=== PATIENT | male | born 1970 | race Caucasian/White ===

== ENCOUNTER → 2018-09-05 06:42 | Outpatient (CLI) | payer BC, SELFPAY ==
[2018-08-21 13:06] VITALS: BMI 34.0
--- NOTE | 2018-09-05 06:46 | ECHOD_ITS ---
Reason For Study: DYSPNEA/SOB Procedure This was a 2D Doppler, Color Flow transthoracic echocardiogram. The study was technically difficult. Exam performed in department. Left Ventricle Normal LV size. Left ventricular systolic function is normal. The estimated ejection fraction is 65 %. Transmitral doppler flow suggestive of impaired relaxation of left ventricle. No regional wall motion abnormalities noted. Right Ventricle Normal RV size. Normal systolic function. Atria Normal left atrium. Normal right atrium. No doppler evidence for ASD. Mitral Valve There is no mitral annular calcification. Mild diffuse mitral valve thickening. Trivial mitral valve insufficiency. Tricuspid Valve Normal tricuspid valve. Trivial tricuspid valve insufficiency. Unable to estimate RV systolic pressure/pulmonary artery pressure due to technically difficult study. Aortic Valve Trisinus/trileaflet aortic valve. Normal aortic valve. Pulmonic Valve The pulmonic valve is not well visualized. Great Vessels Normal sized aortic root. MMode/2D Measurements & Calculations LVIDd: 4.6 cm IVSd: 0.96 cm Ao root diam: 3.4 cm LVIDs: 3.2 cm LVPWd: 1.1 cm RVDd: 3.2 cm FS: 30.7 % LAV(MOD-bp): 34.2 ml LA A4 area: 12.1 cm2 LA dimension(2D): 3.8 cm LAV(MOD-bp) Indexed: 15.6 ml/m2 LAV(MOD-sp2): 39.2 ml LAV(MOD-sp4): 29.7 ml Time Measurements MV dec time: 0.18 sec Doppler Measurements & Calculations MV E max gilberto: 57.6 cm/sec Lat Peak E' Gilberto: 8.6 cm/sec Med Peak E' Gilberto: 7.0 cm/sec MV A max gilberto: 82.3 cm/sec E/E' lat: 6.7 E/E' med: 8.3 MV E/A: 0.70 Ao V2 max: 96.3 cm/sec LV V1 max: 83.0 cm/sec PA V2 max: 94.7 cm/sec Ao max P.7 mmHg LV V1 max P.8 mmHg Interpretation Summary The study was technically difficult. Left ventricular systolic function is normal. The estimated ejection fraction is 65 %. Mild diffuse mitral valve thickening. Trivial mitral valve insufficiency. Trivial tricuspid valve insufficiency. Unable to estimate RV systolic pressure/pulmonary artery pressure due to technically difficult study. Transmitral doppler flow suggestive of impaired relaxation of left ventricle Ordering Physician: Lino Haddad Referring Physician: Vitor Tompkins Performed By: Lorelei Johnson RDCS, RVT
--- NOTE | 2018-09-05 07:00 | RAD_ITS ---
STUDY: X-RAY CHEST REASON FOR EXAM: Male, 48 years old. Shortness of breath TECHNIQUE: Frontal and lateral views of the chest COMPARISON: 09/05/2016 FINDINGS: The lungs are clear. There are no pleural effusions. There is no pneumothorax. The heart is normal in size. The visualized osseous structures are within normal limits. RAD/Chest PA and Lateral IMPRESSION: No acute thoracic pathology. Electronically Signed: Kt Gonzales, at 10:08 EST Tel , Service support ,
--- NOTE | 2018-09-05 14:48 | STRESSREP_ITS ---
Stress Test Report Date: 09/05/2018 Procedure: Exercise tolerance test/imaging study Indications: Chest pain Consent: Per the patient Procedure: The patient exercised on a Jim protocol for 9 minutes completing Stage III achieving a peak heart rate of 166 bpm (95 % predicted maximal heart rate) with a peak blood pressure 164/88 mmHg and a peak MET capacity of 10 METs. The baseline ECG demonstrated normal sinus rhythm. The peak exercise ECG demonstrated no obvious ECG changes. There were no cardiac dysrhythmias pretest, during exercise, or recovery. The functional capacity was considered good. There was no complaint of chest discomfort during exercise or recovery. The examination was discontinued secondary to leg discomfort. Impression: 1. Technically adequate (percent predicted maximal heart rate greater than 85%) exercise tolerance test 2. Peak exercise ECG with no obvious ECG changes 3. There were no cardiac dysrhythmias pretest, during exercise, or recovery 4. Nuclear images pending Myocardial perfusion imaging study: Technique: The patient was injected with 14.3 mCi of technetium 99m Cardiolite and subsequently rest SPECT Cardiolite nuclear imaging was obtained in the horizontal long, vertical long, and short axis views. The patient exercised on a Jim protocol for 9 minutes completing Stage III achieving a peak heart rate of 166 bpm (95 % predicted maximal heart rate) with a peak blood pressure 164/88 mmHg and a peak MET capacity of 10 METs. The patient was injected with 44.2 mCi of technetium 99m Cardiolite and subsequently stress SPECT Cardiolite nuclear imaging was obtained in the horizontal long, vertical long, and short axis views. A gated Cardiolite study at peak stress was obtained. Interpretation: Rest and stress SPECT Cardiolite nuclear imaging status post realignment, normalization, and attenuation correction, demonstrates the appearance of relative uniform tracer uptake and myocardial perfusion appearing within normal limits. There is end systolic thickening and brightening. The gated Cardiolite study demonstrates myocardial thickening and inward wall motion. The reported LVEF is 63 %. Impression: 1. Rest and stress SPECT Cardiolite nuclear imaging demonstrate relative uniform tracer uptake and myocardial perfusion appearing within normal limits. 2. The gated Cardiolite study reports an LVEF of 63 %. This note was generated with [employer] software. It may contain incorrect words, spelling, and punctuation that were not noted in checking the note before signing.
--- OUTSIDE RECORDS SUMMARY | 2018-10-31 01:03 | XMS RPT_ITS ---
:1970 Author Organization OHIP Care Team Providers Name Role Phone Deyanira Lisseth Attending Unavailable MoodispaLino gonsalez Attending Unavailable MoodispawLino Attending Unavailable MoodLino colón Referring Unavailable Vitor Tompkins Primary Care Unavailable Lino Haddad Attending Unavailable MoodLino colón Referring Unavailable Vitor Tompkins Primary Care Unavailable Lino Haddad Consulting Unavailable PROBLEMS PROBLEMS DATE TYPE CONDITION / CODE ATTENDING STATUS SOURCE 09/05/2018 Unknown R06.02 - Shortness Lino Haddad Active [place] of breath / Community R06.02(ICD-10) Hospital Repository 09/05/2018 Unknown R07.9 - Chest pain, Lino Haddad Active [place] unspecified / Community R07.9(ICD-10) Hospital Repository 09/05/2018 Unknown E78.5 - MoodisLino ivan Active [place] Hyperlipidemia, Community unspecified / Hospital E78.5(ICD-10) Repository 09/05/2018 Unknown E11.9 - Type 2 MoodisLino ivan Active [place] diabetes mellitus Community without Hospital complications / Repository E11.9(ICD-10) 08/21/2018 Unknown I10 - Essential Moodispaw, Lino Active [place] (primary) Replaced By [facility] hypertension / Hospital I10(ICD-10) Repository PROCEDURES PROCEDURES No Procedure Records FoundRESULTS RESULTS ECHOCARDIOGRAM COMPLETE Observed: 09/05/2018 Status: F Source: [place] 6:13 PM [facility] REPOSITORY [facility] Cardiovascular Services [address] [place] [address] Echo Complete 09/05/18 0959 MR#: [id number] Acct: [id number] Name: SHANTANU REINOSO III Rep #: [id number] : 1970 48 From: Lino Haddad MD Attending Dr: Lino Haddad MD Status: REG CLI Ordering Dr: Lino Haddad MD Date: 09/05/18 Location: [facility] Sex: M C Admitted: Reason For Study: DYSPNEA/SOB Procedure This was a 2D Doppler, Color Flow transthoracic echocardiogram. The study was technically difficult. Exam performed in department. Left Ventricle Normal LV size. Left ventricular systolic function is normal. The estimated ejection fraction is 65 %. Transmitral doppler flow suggestive of impaired relaxation of left ventricle. No regional wall motion abnormalities noted. Right Ventricle Normal RV size. Normal systolic function. Atria Normal left atrium. Normal right atrium. No doppler evidence for ASD. Mitral Valve There is no mitral annular calcification. Mild diffuse mitral valve thickening. Trivial mitral valve insufficiency. Tricuspid Valve Normal tricuspid valve. Trivial tricuspid valve insufficiency. Unable to estimate RV systolic pressure/pulmonary artery pressure due to technically difficult study. Aortic Valve Trisinus/trileaflet aortic valve. Normal aortic valve. Pulmonic Valve The pulmonic valve is not well visualized. Great Vessels Normal sized aortic root. MMode/2D Measurements AND Calculations LVIDd: 4.6 cm IVSd: 0.96 cm Ao root diam: 3.4 cm LVIDs: 3.2 cm LVPWd: 1.1 cm RVDd: 3.2 cm FS: 30.7 % LAV(MOD-bp): 34.2 ml LA A4 area: 12.1 cm2 LA dimension(2D): 3.8 cm LAV(MOD-bp) Indexed: 15.6 ml/m2 LAV(MOD-sp2): 39.2 ml LAV(MOD-sp4): 29.7 ml Time Measurements MV dec time: 0.18 sec Doppler Measurements AND Calculations MV E max gilberto: 57.6 cm/sec Lat Peak E' Gilberto: 8.6 cm/sec Med Peak E' Gilberto: 7.0 cm/sec MV A max gilberto: 82.3 cm/sec E/E' lat: 6.7 E/E' med: 8.3 MV E/A: 0.70 Ao V2 max: 96.3 cm/sec LV V1 max: 83.0 cm/sec PA V2 max: 94.7 cm/sec Ao max P.7 mmHg LV V1 max P.8 mmHg Interpretation Summary The study was technically difficult. Left ventricular systolic function is normal. The estimated ejection fraction is 65 %. Mild diffuse mitral valve thickening. Trivial mitral valve insufficiency. Trivial tricuspid valve insufficiency. Unable to estimate RV systolic pressure/pulmonary artery pressure due to technically difficult study. Transmitral doppler flow suggestive of impaired relaxation of left ventricle Ordering Physician: Lino Haddad Referring Physician: Vitor Tompkins Performed By: Lorelei Johnson, TEMI, RVT 09/05/181811 Date Lino Haddad MD CC: Vitor Tompkins DO; Lino Haddad MD Date Dictated: 09/05/18 0959 Date Transcribed: 09/05/181811 Lead Sales Consultant: Signed STRESS REPORT Observed: 09/05/2018 Status: F Source: [place] 2:48 PM [facility] REPOSITORY [facility] Cardiovascular Services [address] [place] [address] MR#: [id number] Acct: [id number] Name: SHANTANU REINOSO III Rep #: [id number] : 1970 48 From: Lino Haddad MD Primary Care: Vitor Tompkins DO Status: REG CLI Ordering Dr: Sex: Jaden C Stress Test Report Date: 09/05/2018 Procedure: Exercise tolerance test/imaging study Indications: Chest pain Consent: Per the patient Procedure: The patient exercised on a Jim protocol for 9 minutes completing Stage III achieving a peak heart rate of 166 bpm (95 % predicted maximal heart rate) with a peak blood pressure 164/88 mmHg and a peak MET capacity of 10 METs. The baseline ECG demonstrated normal sinus rhythm. The peak exercise ECG demonstrated no obvious ECG changes. There were no cardiac dysrhythmias pretest, during exercise, or recovery. The functional capacity was considered good. There was no complaint of chest discomfort during exercise or recovery. The examination was discontinued secondary to leg discomfort. Impression: 1. Technically adequate (percent predicted maximal heart rate greater than 85%) exercise tolerance test 2. Peak exercise ECG with no obvious ECG changes 3. There were no cardiac dysrhythmias pretest, during exercise, or recovery 4. Nuclear images pending Myocardial perfusion imaging study: Technique: The patient was injected with 14.3 mCi of technetium 99m Cardiolite and subsequently rest SPECT Cardiolite nuclear imaging was obtained in the horizontal long, vertical long, and short axis views. The patient exercised on a Jim protocol for 9 minutes completing Stage III achieving a peak heart rate of 166 bpm (95 % predicted maximal heart rate) with a peak blood pressure 164/88 mmHg and a peak MET capacity of 10 METs. The patient was injected with 44.2 mCi of technetium 99m Cardiolite and subsequently stress SPECT Cardiolite nuclear imaging was obtained in the horizontal long, vertical long, and short axis views. A gated Cardiolite study at peak stress was obtained. Interpretation: Rest and stress SPECT Cardiolite nuclear imaging status post realignment, normalization, and attenuation correction, demonstrates the appearance of relative uniform tracer uptake and myocardial perfusion appearing within normal limits. There is end systolic thickening and brightening. The gated Cardiolite study demonstrates myocardial thickening and inward wall motion. The reported LVEF is 63 %. Impression: 1. Rest and stress SPECT Cardiolite nuclear imaging demonstrate relative uniform tracer uptake and myocardial perfusion appearing within normal limits. 2. The gated Cardiolite study reports an LVEF of 63 %. This note was generated with YouView software. It may contain incorrect words, spelling, and punctuation that were not noted in checking the note before signing. 09/05/18 1448 <Electronically signed by Lino Haddad MD> Date Lino Haddad MD CC: Vitor Tompkins DO; Lino Haddad MD Date Dictated: 09/05/181443 Date Transcribed: 09/05/181443 Lead Sales Consultant: PM Signed CHEST PA AND LATERAL Observed: 09/05/2018 Status: F Source: [place] 6:46 AM [facility] REPOSITORY [facility] Imaging Services [address] [place] [address] Chest PA and Lateral MR#: [id number] Acct: [id number] Name: SHANTANU REINOSO III Rep #: [id number] : 1970 M 48 From: Kt Gonzales MD PCP: Vitor Tompkins DO Status: REG CLI Study: Chest PA and Lateral Date of Exam: 09/05/18 Exam# [id number] Ordering Dr: Lino Haddad MD STUDY: X-RAY CHEST REASON FOR EXAM: Male, 48 years old. Shortness of breath TECHNIQUE: Frontal and lateral views of the chest COMPARISON: 09/05/2016 FINDINGS: The lungs are clear. There are no pleural effusions. There is no pneumothorax. The heart is normal in size. The visualized osseous structures are within normal limits. RAD/Chest PA and Lateral IMPRESSION: No acute thoracic pathology. Electronically Signed: Kt Gonzales, at 10:08 EST Tel , Service support , CC: Vitor Tompkins DO; Lino Haddad MD Lead Sales Consultant: Signed CARDIOLOGY VISIT Observed: 08/21/2018 Status: F Source: [place] REPORT 6:06 PM [facility] REPOSITORY [facility] [address] [place] [address] OFFICE VISIT Date of Service: 08/21/18 MR#: [id number] Acct: [id number] Name: SHANTANU REINOSO III Rep #: [id number] : 1970 Provider: Lino Haddad MD Age/Sex: 48/M [place] [facility] [place]: Signed HPI HPI Details: SHANTANU REINOSO, is a 48 M who presents to the office today for outpatient cardiovascular consultation based on concerns of chest discomfort and shortness of breath/dyspnea. He states that he is concern based upon his cardiovascular risk factors including his family history of premature coronary artery disease in multiple family members require revascularization therapy and/or leading to . He states he gets a somewhat chest dull discomfort that radiates through his central chest and left chest. This occurs sporadically and may last for a very brief period of time. He notes afterwards he feels somewhat tender to the touch in the chest. It is not necessarily associated with his concerns of shortness of breath or dyspnea nor is it necessarily associated with any other symptoms such as nausea, emesis, or diaphoresis. He also has episodes more concerning to him or becomes short of breath and dyspneic with exertional activity especially going up an incline. He has not had orthopnea or PND. There is been no history of palpitations, near-syncope or syncope. There is been no lower extremity peripheral pitting edema. He had an ECG in the office today. He was noted to be in sinus rhythm. He had poor R wave progression. Intake Vital Signs08/21/18 Height 5 ft 9 in 08/21/18 Weight: 230 lb 08/21/18 Body Mass Index (BMI) 34.0 08/21/18 Blood Pressure 118/72 Intake Visit Reasons: sob/family hx Allergies No Known Allergies Allergy (Verified 08/21/18 13:06) Medications Aspirin [Aspirin, Baby] 81 mg PO DAILY@0800 01/22/14 [History Confirmed 08/21/18] hfugporegzk-wrmmeuqrc-O-Mn-boron 750 mg-600 mg-30 mg-1mg-1.5mg tablet 1 tab PO DAILY tab 07/08/18 [History Confirmed 08/21/18] glyburide 5 mg tablet 10 mg PO BID tab 07/08/18 [History Confirmed 08/21/18] lisinopril 10 mg tablet 10 mg PO DAILY 07/08/18 [History Confirmed 08/21/18] metformin 1,000 mg tablet 1,000 mg PO BID 07/08/18 [History Confirmed 08/21/18] multivitamin tablet 1 tab PO DAILY 07/08/18 [History Confirmed 08/21/18] omega-3 fatty acids 1,000 mg capsule 1,000 mg PO DAILY 07/08/18 [History Confirmed 08/21/18] pravastatin 20 mg tablet 20 mg PO DAILY 07/08/18 [History Confirmed 08/21/18] tadalafil 20 mg tablet 20 mg PO Q3D PRN tab 07/08/18 [History Confirmed 08/21/18] coenzyme Q10 200 mg capsule 200 mg PO DAILY 08/21/18 [History Confirmed 08/21/18] omeprazole 40 mg capsule,delayed release 40 mg PO DAILY 08/21/18 [History Confirmed 08/21/18] [facility] Medical History Hyperlipemia (Chronic) SOB (shortness of breath) (Acute) WES (obstructive sleep apnea) (Chronic) Type 2 diabetes mellitus (Chronic) IBS (irritable bowel syndrome) (Acute) Osteoarthritis (Chronic) Essential hypertension (Inactive) Surgical History History of appendectomy (Resolved) History of back surgery (Resolved) History of cholecystectomy (Resolved) History of knee surgery (Resolved) History of shoulder surgery (Resolved) Family History Father Heart disease CVA (cerebral vascular accident) Hypertension Grandfather Myocardial infarction, Onset Age: 43 Uncle Myocardial infarction, Onset Age: 39 Grandmother CAD (coronary artery disease) History of coronary artery bypass surgery Social History Smoking Status: Never smoker alcohol intake: never substance use type: does not use ROS Const Const: Positive for fatigue (increased); negative for weakness, weight gain, weight loss, frequent falls or excessive sweating Eyes Eyes: Negative for change in vision, blurry vision or transient loss of vision ENT ENT: Negative for dizziness or balance problems Cardio Chest Pain: Yes Character: dull Onset: at rest, exercise Location: mid sternal, left chest Duration: brief Palpitations: No Edema: None Muscle aches with walking: None Additional Details: Patient reports CP both at rest and with activity which is described as dull located midsternal and to the left chest. Patient reports that pain can radiate to his back. Resp Respiratory: Positive for SOB with activity (while climbing stairs which is new for patient) and Cough (dry); negative for SOB at rest GI GI: Negative vomiting or vomiting blood/hematemesis : Negative for hematuria Musc Musc: Positive for joint pain (HX arthritis); negative for balance problems, muscle aches/ myalgia or muscle weakness Skin Skin: Negative non-healing lesions or rash Neuro Neuro: Negative for weakness, blurry vision, dizziness, lightheadedness, frequent falls or orthostatic symptoms Vladislav Hematologic/Lymphatic: Negative for easy bleeding Endo Endo: Positive for fatigue (increased); negative for excessive sweating Psych Psych: Negative for anxiety or depression Allergy Allergy/Immunology: Negative for hives, Negative for rash Cardiology Exam Const Appearance: cooperative, healthy appearing, comfortable, no acute distress, well developed and well groomed Nutritional Appearance: overweight Orientation: alert, awake and oriented x3 Head Head: normal to inspection, normocephalic and atraumatic Ears: hearing grossly normal bilaterally Nose: external nose normal Face and Sinus: face symmetric Mouth: oral mucosae normal Teeth and gingiva: fair dentition Eyes Eyelids: eyelids normal Conjunctivae: conjunctivae normal Pupils: PERRL EOM: EOM intact bilaterally Neck Neck: normal visual inspection and full ROM Carotids: normal carotid upstroke Chest Chest inspection: normal inspection of the chest, symmetric chest movement and normal respiratory effort Auscultation: Bilateral: Clear to Auscultation Cardio Palpation: normal PMI Rate: regular rate Rhythm: regular rhythm Heart sounds: S1 normal and S2 normal GI GI: normal to inspection, bowel sounds present and soft Neuro General: alert, awake, oriented x3, gait normal, moves all extremities, no focal sensory deficit and no focal motor deficits Skin Skin: no rashes or lesions noted Extremities Pulses: Normal: Right Radial Pulse, Left Radial Pulse Lower Extremity Edema: None: Bilateral Psych Psychological: normal affect Assessment AND Plan 1. Shortness of breath R06.02 Plan He does have exertional shortness of breath and dyspnea. It is unclear whether this is cardiac related and angina pectoris equivalent versus noncardiac related. He does have multiple cardiovascular risk factors including his family history. At the present time he will undergo further evaluation of his symptoms. From a cardiac standpoint this will include an echocardiogram to assess his left ventricular wall motion systolic function and an exercise tolerance test/imaging study to evaluate for obvious symptoms, elective cardiographic changes, and left ventricular changes that would warrant further evaluation and care such as diagnostic cardiac catheterization. In the interim he will have noncardiac evaluation of his underlying metabolic status via laboratory studies to evaluate other issues that may contribute to his shortness of breath and dyspnea. He will continue his current medical management Orders Orders: 2. Chest pain R07.9 Plan He does have chest pain. Again it may be somewhat atypical. However based on his multiple cardiovascular risk factors it is prudent to further evaluate him. Thus he will proceed with evaluation and care as noted above Orders Orders: 3. Hyperlipidemia, unspecified hyperlipidemia type E78.5 Plan He does have a history of hyper lipidemia. He is on lipid- lowering medication. This will be continued. Orders Orders: 4. Diabetes mellitus, type II E11.9 Plan He has a history of diabetes mellitus. He will continue to follow with his primary care physician for this. Orders Orders: 5. WES (obstructive sleep apnea) G47.33 Plan He also has a history of obstructive sleep apnea. He will continue to use his device as best as possible. Plan Detail Other Orders Orders: Additional Comments Thank you for allowing me to participate in the care of your patient. Please don't hesitate to call if any issues arise. This note was generated using a voice recognition system and there may be incorrect words, spelling or punctuation that were not noted when reviewing the office note prior to saving. Follow Up 3 Months Coding Level of Care Code Off vis,new,level 5 Diagnoses Shortness of breath R06.02 Chest pain R07.9 Hyperlipidemia, unspecified hyperlipidemia type E78.5 Hyperlipidemia type: unspecified Diabetes mellitus, type II E11.9 WES (obstructive sleep apnea) G47.33 Coding Level of Care Code Off vis,new,level 5 Diagnoses Shortness of breath R06.02 Chest pain R07.9 Hyperlipidemia, unspecified hyperlipidemia type E78.5 Hyperlipidemia type: unspecified Diabetes mellitus, type II E11.9 WES (obstructive sleep apnea) G47.33 08/21/18 1806 <Electronically signed by Lino Haddad MD> Date Lino Haddad MD Cosigner Signature: Date (if applicable) CC: 12 LEAD EKG PERFORMED Observed: 08/21/2018 Status: F [place] [facility] [place] [facility] REPOSITORY [facility] [address] [place] [address] 12 Lead EKG performed [place] [facility] [place] 08/21/18 1301 MR#: [id number] Acct: [id number] Name: SHANTANU REINOSO JACINTA Rep #: [id number] : 1970 48 From: Lino Haddad MD Attending Dr: Lino Haddad MD Status: DEP AMB Ordering Dr: Lino Haddad MD Date: 08/21/18 [place] [facility] [place]: M C Admitted: [facility] [place]12 Lead EKG performed by [facility] ECG Report Interpretation Sinus Rhythm Poor R wave progressionElectronically signed on 08/22/2018 at 13:12 by Lino Haddad Software Version [id number] 08/22/18 1314 Date Lino Haddad MD CC: Date Dictated: 08/21/18 1301 Date Transcribed: 08/21/181300 Lead Sales Consultant: PM Signed ALLERGIES ALLERGIES DATE TYPE / CODE NAME / CODE REACTION SEVERITY SOURCE 08/21/2018 Drug No Known Unknown [place] Replaced By [facility] Allergy/4160 Allergies/F00 Hospital 17222(SNOMED [id number](RXNOR Repository CT) M) ENCOUNTERS ENCOUNTERS ADMIT/DISCHARGE ACCOUNT ADMITTING ENCOUNTER LOCATION SOURCE NUMBER CLASS 09/05/2018 [id number] Ambulatory BMSBuilding:B [place] 2 [place].CF[facility] Repository 09/05/2018 [id number] Ambulatory [facility] ing:[facility] Repository 08/21/2018/ [id number] Ambulatory BMSBuilding:B [place] 8 9 MS.[facility] Repository 07/08/2018 [id number] Ambulatory BMSBuilding:B [facility] 7 [facility] Repository PAYERS PAYERS ENCOUNTER GUARANTOR PAYER SUBSCRIBER SOURCE 09/05/2018 SHANTANU Aldrich Primary UDAY Y [place] KEMAR [id number] Insurance:ANTHEMPolic LEMASTERDOB: [facility] y [place]: [id number] [id number] Repository [address]Gee: [phone] Date:3070-69-67EC [phone] () [place], [place] [address]GD: 09/05/2018 Secondary NOT GIVENUNK [place] Insurance:SELF PAY [facility] Number: Effective Repository Date:2018-09-05 09/05/2018 SHANTANU Aldrich Primary UDAY Y [facility] KEMAR [id number] Insurance:ANTHEMPolic LEMASTERDOB: [facility] y Number: [id number] [id number] Repository [address]Rrl: ([phone]) Date:7719-51-68LQ [phone] () [address], [place] [address]ZA: 09/05/2018 Secondary NOT GIVENUNK [facility] Insurance:SELF PAY [facility] Number: Effective Repository Date:2018-08-21 08/21/2018 SHANTANU J Primary SHANTANU J [place] KEMAR [id number] Insurance:ANTHEMPolic KEMAR IIIDOB: [facility] y [place]: [id number], [place] [id number] Repository [address]Qle: ([phone]) Date:3828-20-03WK [phone] () [address], [place] [address]GP: 08/21/2018 Secondary NOT GIVENUNK [place] Insurance:SELF PAY [facility] Number: Effective Repository Date:2018-08-21 07/08/2018 Shantanu J Primary UDAY Y [place] Kemar [id number] Insurance:MEDICAL LEMASTERDOB: Community [facility] [id number] Number: Repository [id number]: [phone]) [id number] [phone] () Date:4691-38-17CC [address], [place] [address]TM: 07/08/2018 Secondary NOT GIVENUNK [place] Insurance:SELF PAY [facility] Number: Effective Repository Date:2018-07-08
--- OUTSIDE RECORDS SUMMARY | 2018-10-31 01:03 | XMS RPT_ITS | Clinical Summary ---
:1970 Author Organization [facility], [facility] Address [address] [place] [address] Phone Care Team Providers Name Role Phone Deyanira POWELL, Lisseth Lincoln Unavailable Conditions or Problems Problem Name Problem Onset Status Entry Provider Comment Standard Annotate Code Date Date Description Bronchitis, 93245124 Inactive Vitor A Acute bronchitis acute (SNOMED 01/03 01/[address]) DO Cough 29954703 Inactive Vitor A Cough (SNOMED 01/03 01/[address]) DO Otitis 0877610 Inactive Vitor A Acute otitis media, acute (SNOMED 12/20 12/[address]) DO URI 88620698 Inactive Vitor A Upper (SNOMED 12/20 12/[address]) DO infection Obstructive 01896852 Active Vitor A Obstructive Bipap Sleep Apnea (SNOMED 05/12 05/12 Turner sleep apnea tried -- CT) DO syndrome returned Chest pain 43110373 Active Vitor A Chest pain (SNOMED 11/18 11/[address]) DO Hypertension 39081607 Active Vitor A Hypertensive (SNOMED 11/18 11/[address]) DO Migraine 55014529 Active Vitor A Migraine headache (SNOMED 11/18 11/[address]) DO Claudication 320346086 Inactive Vitor A Claudication (SNOMED 10/24 10/[address]) DO Skin tag 122668854 Inactive Vitor A Skin tag (SNOMED 10/08 10/[address]) DO Obstructive 63977567 Inactive Vitor A Obstructive Sleep Apnea (SNOMED 05/12 05/12 [facility] sleep apnea CT) DO syndrome Snoring 52338210 Resolved Vitor A Snoring (SNOMED 01/18 01/[address]) DO Abdominal 54185948 Resolved Vitor A Abdominal pain pain (SNOMED 01/18 01/[address] [facility] [address]) DO Male 5498596 Active Vitor A 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 (SNOMED 02/02 02/[address]) DO Enlargement, 90295102 Active Vitor A Lymphadenopathy lymph nodes (SNOMED 02/02 02/[address]) DO Fatty liver 771212399 Active Vitor A Steatosis of disease (SNOMED 02/02 02/02 [facility] liver CT) DO Leg cramps 575385722 Active Vitor A Cramp in lower (SNOMED 01/18 01/18 [facility] limb CT) DO IBS 69874601 Active Vitor A Irritable bowel (irritable (SNOMED 01/18 01/18 [facility] syndrome bowel CT) DO syndrome) Snoring 35949558 Removed Vitor A Snoring (SNOMED 01/18 01/[address]) DO Obesity 977679752 Active Vitor A Obesity (SNOMED 01/18 01/18 [facility] CT) DO Erectile 027765843 Active Vitor A Male erectile dysfunction (SNOMED 01/18 01/18 [facility] disorder CT) DO Osteoarthros 631477367 Active Vitor A Degenerative is, (SNOMED 01/18 01/18 [facility] joint disease generalized, CT) DO involving multiple multiple joints sites Hyperlipidem 03311170 Active Vitor A Hyperlipidemia ia (SNOMED 01/18 01/[address]) DO Diabetes 48821911 Active Vitor A Type 2 diabetes mellitus, (SNOMED 01/18 01/18 [facility] mellitus type II CT) DO Abdominal 89813836 Removed Vitor A Abdominal pain pain (SNOMED 01/18 01/[address]) DO Medications Medication Instructions Start Stop Generic Name [facility] Provider Date Date TRULICITY 1.5 1.5mg injection / DULAGLUTIDE 55046733846 Vitor A MG/0.5ML SOPN SC weekly 03 CIALIS 20 MG One tablet by / TADALAFIL 91029109462 Vitor A TABS mouth every 3 10 Turner DO days as needed PRAVACHOL 20 MG 1 tab by mouth / PRAVASTATIN 55557792437 Vitor A TABS daily for 14 SODIUM Turner DO hyperlipidemia GLYBURIDE 5 MG 2 tabs by mouth / GLYBURIDE 24379373131 Vitor A TABS twice daily for 14 Turner DO DM II METFORMIN HCL 1 tab by mouth / METFORMIN HCL 65530609846 Vitor A 1000 MG TABS twice daily for 14 Turner DO DM II LISINOPRIL 10 One tablet by / LISINOPRIL 50279984043 Vitor A MG TABS mouth daily for 12 Turner DO high blood pressure AZITHROMYCIN 2 PO on day 1 / AZITHROMYCIN 02652326058 Vitor A 250 MG TABS then 1 PO daily 31 Turner DO on days 2-5 AMOXICILLIN 500 One tablet by / AMOXICILLIN 02827233349 Vitor A MG CAPS mouth three times Turner DO daily BYDUREON 2 MG 2mg SC weekly for / EXENATIDE 68713607020 Vitor A PEN diabetes Turner DO VIAGRA 100 MG 1/2-1 tablet as / SILDENAFIL 03235813024 Vitor A TABS needed 19 CITRATE Turner CIALIS 20 MG One tablet as / TADALAFIL 21352928407 Vitor A TABS needed every 3 14 Turner DO days LANTUS 100 as directed / INSULIN 40239948416 Lisseth Lincoln UNIT/ML SOLN 06 GLARGINE Deyanira POWELL ASPIR-LOW 81 MG One tablet by / ASPIRIN 71555521644 Lisseth Lincoln TBEC mouth daily 14 Deyanira POWELL GLYBURIDE 5 MG One tablet by / GLYBURIDE 09137729637 Lisseth Lincoln TABS mouth twice daily 14 Deyanira POWELL MELOXICAM 15 MG One tablet by / MELOXICAM 78401309051 Lisseth Lincoln TABS mouth daily 06 Deyanira POWELL BYDUREON 2 MG 2mg SC weekly for / EXENATIDE 05171361491 Vitor A PEN diabetes Turner DO ASPIR-LOW 81 MG Once daily ASPIRIN 36042219227 Vitor A TBEC 14 Turner DO CIALIS 20 MG One tablet as TADALAFIL 76492460922 Vitor A TABS needed every 3 Turner DO days CIALIS TABS as needed TADALAFIL TABS 97798090242 Vitor A 14 Turner DO CIALIS TABS as needed TADALAFIL TABS 31897407966 Vitor A Turner DO VIAGRA 100 MG 1/2-1 tablet as SILDENAFIL 96584271246 Lisseth L TABS needed CITRATE Deyanira POWELL TRULICITY 1.5 1.5mg injection DULAGLUTIDE 15158237244 Lisseth L MG/0.5ML SOPN SC weekly Deyanira RN AZITHROMYCIN 2 PO on day 1 AZITHROMYCIN 74419552111 Lisseth L 250 MG TABS then 1 PO daily Deyanira RN on days 2-5 CIALIS 20 MG One tablet by TADALAFIL 69100137749 Lisseth L TABS mouth every 3 Deyanira RN days as needed Medications Administered No information available. Allergies, Adverse Reactions, Alerts Observed no known allergies at Results Date Name Value Unit Range Flag Description Lab Report: CBC W/Diff, Automated ABS LYMPHOCY 2.06 X10 3/UL 10*3/uL 0.83-4.51 Absolute Lymphocytes ABS PMNS 4.4 X10 3/UL {Cells}/uL 2.0-7.7 Absolute Neutrophil count BASOPHIL % 0.3 % 0-1 basophils as percent of blood leukocytes EOSINOPHIL % 2.2 % 0-5 eosinophils as percent of blood leukocytes MONOCYTE % 8.8 % 0-10 monocytes as percent of blood leukocytes LYMPHS % 28.3 % 19-41 lymphocytes as percent of blood leukocytes PMN % 60.0 % 47-70 neutrophils as percent of blood leukocytes MPV 10.6 fL 6.2-12.0 mean platelet volume PLATELETS 191 10*3/mm3 150-450 platelet count RDW-SD 39.8 fL 35.1-43.9 red blood cell distribution width, size density MCHC RBC 33.8 G/GL g/dL 32-36 mean corpuscular hemoglobin concentration, RBC MCH 28.4 pg 27.0-32.0 mean corpuscular hemoglobin, RBC MCV 84.0 fL 80-94 mean corpuscular volume, RBC HCT 47.3 % 40-54 hematocrit, blood HGB 16.0 g/dL 13.0-16.5 hemoglobin, blood RBC M/UL 5.63 10*6/uL 4.6-6.2 red blood count WBC BLOOD 7.3 10*9/L 4.4-11.0 leukocyte (white blood cells) count, blood Lab Report: Microalb:Creat Ratio,Random UR MICRALB RANU 1.8 mg/dL Units converted. See Microalbumin lab report for [Mass/volume] in Urine original value. CREATIN UR 240.9 mg/dL NO RANGE EST. creatinine, random, urine Lab Report: Comprehensive Metabolic Profil ANION GAP 9 5-15 anion gap, serum CO2 25.0 mmol/L 21.0-32.0 carbon dioxide, venous blood CHLORIDE 102 mmol/L 98-107 chloride, serum POTASSIUM 3.9 mmol/L 3.5-5.1 potassium, serum SODIUM 136 mmol/L 136-145 sodium, serum BILI TOTAL 0.50 mg/dL 0.00-4.00 bilirubin, serum, total SGPT (ALT) 56 U/L 12-78 alanine aminotransferase (SGPT), serum ALK PHOS 98 U/L 50-136 alkaline phosphatase, serum SGOT (AST) 26 U/L 15-37 aspartate aminotransferase (SGOT), serum CALCIUM 8.9 mg/dL 8.5-10.1 calcium, serum A/G RATIO 1.1 RATIO 0.9-2.4 albumin/globulin ratio, serum GLOBULIN TOT 3.6 g/dL 2.7-4.2 globulins, serum, total ALBUMIN 3.9 g/dL 3.4-5.0 albumin, serum PROTEIN, TOT 7.5 g/dL 6.4-8.2 protein, total, serum BUN/CREAT 16.7 RATIO 10-20 urea nitrogen/creatinine ratio, serum GFRAA 119 mL/min >60 Glomerular Filtration rate GFR EST 98 mL/min >60 estimated glomerular filtration rate CREATININE 0.9 mg/dL 0.8-1.3 creatinine, serum BUN 15 mg/dL 7-18 urea nitrogen, blood GLUCOSE SER 248 mg/dL 70-110 H blood glucose Lab Report: Lipid Profile VLDL 70 mg/dL 5-40 H very low density lipoproteins LDL 58 mg/dL 0-130 Cholesterol in LDL [Mass/volume] in Serum or Plasma HDL 26 mg/dL L Cholesterol in HDL [Mass/volume] in Serum or Plasma TRIGLYCRDES 351 mg/dL 0-199 H Triglyceride [Mass/volume] in Serum or Plasma CHOLESTEROL 154 mg/dL 200 Cholesterol [Mass/volume] in Serum or Plasma Lab Report: Lipase LIPASE SERUM 240 U/L 70-290 lipase, serum Lab Report: Thyroid Stim Hormone (TSH) TSH 2.77 u[iU]/mL 0.358-3.74 thyroid stimulating hormone, serum Office Visit: [facility] HGBA1C 10.2 % Hemoglobin A1c/Hemoglobin.total in Blood EKG Report: Midmark ECG Observations EKG INTERP Sinus Rhythm -Left electrocardiogram atrial enlargement. interpretation BORDERLINE EKG T AXIS 29 deg T wave axis, electrocardiogram EKG QRS AXIS 14 deg QRS axis, electrocardiogram EKG PWAVAXIS 41 deg P wave axis, electrocardiogram QRS INTERVAL 92 ms QRS duration, electrocardiogram ZZ-GE-unk 381 ms GE use only - for LinkLogic import when terms are not otherwise specified QT INTERVAL new path ms QT interval, electrocardiogram ND INTERVAL 168 ms ND interval, electrocardiogram EKGHRTRATE 88 BPM heart rate on electrocardiogram Office Visit: Cough MEDS REVIEW Done Documentation of current medications (procedure) ORALTOBACUSE Never Tobacco smoking status [facility] Rx Refill: eRx Request for TRULICITY 1.5 MG/0.5 ML PEN ESM_RR [id number]`TRULICITY 1.5 MG/0.5 ML PEN```2 B e-scripts Syringe`28`INJECT 1.5 MG SUBCUTANEOUSLY messenger WEEKLY``6`0`10/09/2015`No date sent`[facility] refill [place]*`[id number]`TRULICITY request 1.5 MG/0.5 ML PEN Quantity: 2 Syringe Instructions: INJECT 1.5 MG SUBCUTANEOUSLY WEEKLY Clinical Lists Update: Preload SMOK STATUS Never smoker Tobacco use [facility] Plan of Care Type Date Detail Appointment 10:30 AM Lino Haddad MD, [address], [address], [place], [address], Referral Gastroenterology Referral Referral Other Referral [facility] Nutrition Services, [address] [place], [address] Referral Other Referral [facility] Nutrition Services, [address] [place], [address] Referral Gastroenterology Referral Pending order *CMP Complete Metabolic Panel Pending order *Lipid Profile Pending order *Microalbumin, Creatine Ratio, rand urine Pending order *HgA1C Pending order *CANDELARIO Testosterone Total Pending order X-Ray, Chest, PA & Lateral Pending order Stress Echocardiogram (treadmill) Pending order Peripheral Vascular Arterial Study noninvasive Pending order Complete sleep workup (PSG,CPAP as indicated) & Follow up Pending order HGB A1C (Office) Pending order Excision Skin Tags (1-15) Pending order *SPCT Semen Anal - Motility and Count Pending order Peripheral Vascular Arterial Study noninvasive Pending order Peripheral Vascular Arterial Study noninvasive Pending order US Abdomen, limited Pending order *CBC with Differential Pending order *CMP Complete Metabolic Panel Pending order *HgA1C Pending order *Lipid Profile Pending order *TSH Pending order *Microalbumin, Creatine Ratio, rand urine Pending order *Lipase Procedures Code Procedure Name Date Entry Date CPT-47035 HGB A1C (Office) 0184-1 *CBC with Differential 4548-4 *HgA1C 0786-1 *CMP Complete Metabolic Panel 3040-3 *Lipase 08844-6 *Lipid Profile 3016-3 *TSH 0779-1 *Microalbumin, Creatine Ratio, rand urine Vital Signs Date Name Value Unit Description BMI (Body Mass Index) 35.40 kg/m2 Body Mass Index [Ratio] Body Temperature 98.3 [degF] temperature E&M BP Diastolic 84 mm[Hg] blood pressure, diastolic - 8462-4 BP Systolic 126 mm[Hg] blood pressure, systolic - 8480-6 BSA (Body Surface Area) 2.26 body surface area Heart Rate 88 /min pulse rate E&M - 8867-4 Respiratory Rate 16 /min respiratory rate E&M - 9279-1 Weight Measured 243.2 [lb_av] weight E&M - 3141-9 Height 69.5 [in_us] height E&M - 8302-2
== END ==
PROVIDERS: Family Provider Family Medicine; PCP Family Medicine; Referring Provider Internal Medicine Cardiovascular Disease; Visit Provider Internal Medicine Cardiovascular Disease
DX: E11.9 Type 2 diabetes mellitus without complications (principal); E78.5 Hyperlipidemia, unspecified; R07.9 Chest pain, unspecified; R06.02 Shortness of breath
CPT/HCPCS: 71046; 78452; 93017; 93306; A9500; A4216

== ENCOUNTER → 2018-10-27 13:44 | Outpatient (CLI) | payer BC, SELFPAY ==
[2018-08-21 13:06] VITALS: BMI 34.0
[2018-10-27 16:07] LABS: Absolute Lymphocyte Count 2.09 X10^3/ul (0.83-4.51); Absolute Neutrophil Count 4.5 X10^3/uL (2.0-7.7); Basophil# 0.03 X10^3/uL; Basophil% 0.4 % (0-1); Eosinophil# 0.11 X10^3/uL; Eosinophils% 1.5 % (0-5); Hematocrit 45.5 % (40-54); Hemoglobin 15.7 g/dl (13.0-16.5); Lymphocyte # 2.09 X10^3/ul (4.0); Lymphocyte % 28.4 % (19-41); Mean Corp Hgb Conc 34.5 g/gl (32-36); Mean Corpuscular Hgb 29.2 pg (27.0-32.0); Mean Corpuscular Volume 84.6 fL (80-94); Mean Platelet Vol. 10.9 fl (6.2-12.0); Monocyte# 0.66 X10^3/uL; Neutrophil # 4.45 X10^3/uL (2.7-7.7); Neutrophil % 60.3 % (47-70); POSITIVE COUNT NO; POSITIVE DIFFERENTIAL NO; POSITIVE MORPHOLOGY NO; Platelet Count 179 K/mm3 (150-450); RBC Distribution Width CV 13.2 % (11.6-14.6); RBC Distribution Width SD 40.2 fl (35.1-43.9); Red Blood Count 5.38 M/mm3 (4.6-6.2); White Blood Count 7.4 K/mm3 (4.4-11.0)
[2018-10-27 17:02] LABS: AST(SGOT) 27 U/L (15-37); Alanine Aminotransfer ALT/SGPT 52 U/L (16-61); Albumin, Serum 3.8 g/dL (3.2-5.0); Alkaline Phosphatase 98 U/L (45-117); Anion Gap 9 (5-15); BUN 10 mg/dL (7-18); BUN/Creat Ratio 13.2 RATIO (10-20); Bilirubin, Direct 0.13 mg/dL (0.00-0.30); Calcium,Total 8.8 mg/dL (8.5-10.1); Chloride 103 mmol/L (98-107); Cholesterol 172 mg/dL (200); Creatinine, Serum 0.76 mg/dL (0.70-1.30); EST Glomerular Filtration Rate 117 mL/min (>60); Est Glom Filt Rate - Afr Amer 142 mL/min (>60); Globulin 3.7 g/dL (2.2-4.2); Glucose 274 mg/dL (74-106); High Density Lipoprotein 32 mg/dL; Potassium 3.8 mmol/L (3.5-5.1); Protein, Total 7.5 g/dL (6.4-8.2); Sodium Level 137 mmol/L (136-145); Thyroid Stim Hormone (TSH) 2.12 uIU/mL (0.358-3.74); Triglycerides 331 mg/dL; Very Low Density Lipoprotein 66 mg/dL (5-40)
[2018-10-27 17:23] LABS: Hemoglobin A1c 11.4 % (4.2-6.3)
[2018-10-27 18:01] LABS: Erythrocyte Sedimentation Rate 17 mm/hr (0-15)
--- OUTSIDE RECORDS SUMMARY | 2018-12-30 01:55 | XMS RPT_ITS | Clinical Summary ---
:1970 Author Organization [facility], [facility] Address [address] [place] [address] Phone Care Team Providers Name Role Phone Deyanira POWELL, Lisseth Lincoln Unavailable Conditions or Problems Problem Name Problem Onset Status Entry Provider Comment Standard Annotate Code Date Date Description Bronchitis, 61675916 Inactive Vitor A Acute bronchitis acute (SNOMED 01/03 01/[address]) DO Cough 59947937 Inactive Vitor A Cough (SNOMED 01/03 01/[address]) DO Otitis 9750869 Inactive Vitor A Acute otitis media, acute (SNOMED 12/20 12/[address]) DO URI 99371751 Inactive Vitor A Upper (SNOMED 12/20 12/[address]) DO infection Obstructive 33600125 Active Vitor A Obstructive Bipap Sleep Apnea (SNOMED 05/12 05/12 [facility] sleep apnea tried -- CT) DO syndrome returned Chest pain 86554611 Active Vitor A Chest pain (SNOMED 11/18 11/[address]) DO Hypertension 67128156 Active Vitor A Hypertensive (SNOMED 11/18 11/[address]) DO Migraine 81370404 Active Vitor A Migraine headache (SNOMED 11/18 11/[address]) DO Claudication 519671171 Inactive Vitor A Claudication (SNOMED 10/24 10/[address]) DO Skin tag 880451592 Inactive Vitor A Skin tag (SNOMED 10/08 10/[address]) DO Obstructive 63009054 Inactive Vitor A Obstructive Sleep Apnea (SNOMED 05/12 05/12 [facility] sleep apnea CT) DO syndrome Snoring 74626331 Resolved Vitor A Snoring (SNOMED 01/18 01/[address]) DO Abdominal 02990975 Resolved Vitor A Abdominal pain pain (SNOMED 01/18 01/[address] [facility] [address]) DO Male 5974397 Active Vitor A 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 (SNOMED 02/02 02/[address]) DO Enlargement, 69271416 Active Vitor A Lymphadenopathy lymph nodes (SNOMED 02/02 02/[address]) DO Fatty liver 719400411 Active Vitor A Steatosis of disease (SNOMED 02/02 02/02 [facility] liver CT) DO Leg cramps 005008760 Active Vitor A Cramp in lower (SNOMED 01/18 01/18 [facility] limb CT) DO IBS 64644093 Active Vitor A Irritable bowel (irritable (SNOMED 01/18 01/18 [facility] syndrome bowel CT) DO syndrome) Snoring 25607308 Removed Vitor A Snoring (SNOMED 01/18 01/[address]) DO Obesity 180132193 Active Vitor A Obesity (SNOMED 01/18 01/18 [facility] [address]) DO Erectile 172276744 Active Vitor A Male erectile dysfunction (SNOMED 01/18 01/18 [facility] disorder CT) DO Osteoarthros 576582359 Active Vitor A Degenerative is, (SNOMED 01/18 01/18 [facility] joint disease generalized, CT) DO involving multiple multiple joints sites Hyperlipidem 02460538 Active Vitor A Hyperlipidemia ia (SNOMED 01/18 01/[address]) DO Diabetes 49138051 Active Vitor A Type 2 diabetes mellitus, (SNOMED 01/18 01/18 [facility] mellitus type II CT) DO Abdominal 34156225 Removed Vitor A Abdominal pain pain (SNOMED 01/18 01/[address]) DO Medications Medication Instructions Start Stop Generic Name [facility] Provider Date Date TRULICITY 1.5 1.5mg injection / DULAGLUTIDE 29637239342 Vitor A MG/0.5ML SOPN SC weekly 03 CIALIS 20 MG One tablet by / TADALAFIL 50239982345 Vitor A TABS mouth every 3 10 Turner DO days as needed PRAVACHOL 20 MG 1 tab by mouth / PRAVASTATIN 69020291123 Vitor A TABS daily for 14 SODIUM Turner DO hyperlipidemia GLYBURIDE 5 MG 2 tabs by mouth / GLYBURIDE 55359939681 Vitor A TABS twice daily for 14 Turner DO DM II METFORMIN HCL 1 tab by mouth / METFORMIN HCL 74223647232 Vitor A 1000 MG TABS twice daily for 14 Turner DO DM II LISINOPRIL 10 One tablet by / LISINOPRIL 89538243440 Vitor A MG TABS mouth daily for 12 Turner DO high blood pressure AZITHROMYCIN 2 PO on day 1 / AZITHROMYCIN 08403809847 Vitor A 250 MG TABS then 1 PO daily 31 Turner DO on days 2-5 AMOXICILLIN 500 One tablet by / AMOXICILLIN 99305174059 Vitor A MG CAPS mouth three times Turner DO daily BYDUREON 2 MG 2mg SC weekly for / EXENATIDE 29048891766 Vitor A PEN diabetes Turner DO VIAGRA 100 MG 1/2-1 tablet as / SILDENAFIL 68913161768 Vitor A TABS needed 19 CITRATE Turner CIALIS 20 MG One tablet as / TADALAFIL 68052069611 Vitor A TABS needed every 3 14 Turner DO days LANTUS 100 as directed / INSULIN 14455464439 Lisseth Lincoln UNIT/ML SOLN 06 GLARGINE Deyanira POWELL ASPIR-LOW 81 MG One tablet by / ASPIRIN 08700645386 Lisseth Lincoln TBEC mouth daily 14 Deyanira POWELL GLYBURIDE 5 MG One tablet by / GLYBURIDE 31067276359 Lisseth Lincoln TABS mouth twice daily 14 Deyanira POWELL MELOXICAM 15 MG One tablet by / MELOXICAM 49439571137 Lisseth Lincoln TABS mouth daily 06 Deyanira POWELL BYDUREON 2 MG 2mg SC weekly for / EXENATIDE 31204476007 Vitor A PEN diabetes Turner DO ASPIR-LOW 81 MG Once daily ASPIRIN 67026102535 Vitor A TBEC 14 Turner DO CIALIS 20 MG One tablet as TADALAFIL 54936655061 Vitor A TABS needed every 3 Turner DO days CIALIS TABS as needed TADALAFIL TABS 99729702361 Vitor A 14 Turner DO CIALIS TABS as needed TADALAFIL TABS 69181932255 Vitor A Turner DO VIAGRA 100 MG 1/2-1 tablet as SILDENAFIL 44999420769 Lisseth L TABS needed CITRATE Deyanira POWELL TRULICITY 1.5 1.5mg injection DULAGLUTIDE 19151088774 Lisseth L MG/0.5ML SOPN SC weekly Deyanira RN AZITHROMYCIN 2 PO on day 1 AZITHROMYCIN 24892580581 Lisseth L 250 MG TABS then 1 PO daily Deyanira RN on days 2-5 CIALIS 20 MG One tablet by TADALAFIL 19105094326 Lisseth L TABS mouth every 3 Deyanira [...] 0.358-3.74 thyroid stimulating hormone, serum Office Visit: [facility] HGBA1C 10.2 % Hemoglobin A1c/Hemoglobin.total [...] INTERVAL new path ms QT interval, electrocardiogram ID INTERVAL 168 ms ID interval, electrocardiogram EKGHRTRATE 88 BPM heart rate on electrocardiogram Office Visit: Cough MEDS REVIEW Done Documentation of current medications (procedure) ORALTOBACUSE Never Tobacco smoking status [facility] Rx Refill: eRx Request for TRULICITY 1.5 MG/0.5 ML PEN ESM_RR [id number]`TRULICITY 1.5 MG/0.5 ML PEN```2 B e-scripts Syringe`28`INJECT 1.5 MG SUBCUTANEOUSLY messenger WEEKLY``6`0`10/09/2015`No date sent`[facility] refill [place]*`[id number]`TRULICITY request 1.5 MG/0.5 ML PEN Quantity: 2 Syringe Instructions: INJECT 1.5 MG SUBCUTANEOUSLY WEEKLY Clinical Lists Update: Preload SMOK STATUS Never smoker Tobacco use [facility] Plan of Care Type Date Detail Appointment 10:30 AM Lino Haddad MD, [address], [address], [place], [address], Referral Gastroenterology Referral Referral Other Referral [facility] Nutrition Services, [address] [place], [address] Referral Other Referral [facility] Nutrition Services, [address] [place], [address] Referral Gastroenterology Referral Pending order *CMP Complete [...] Procedures Code Procedure Name Date Entry Date CPT-87562 HGB A1C (Office) 0184-1 *CBC with Differential 4548-4 *HgA1C 0786-1 *CMP Complete Metabolic Panel 3040-3 *Lipase 68131-4 *Lipid Profile 3016-3 *TSH 0779-1 *Microalbumin, Creatine [...]
--- OUTSIDE RECORDS SUMMARY | 2018-12-30 01:55 | XMS RPT_ITS ---
:1970 Author Organization OHIP Care Team Providers Name Role Phone Vitor Tompkins Attending Unavailable Vitor Tompkins Primary Care Unavailable Lisseth Mcmillan Attending Unavailable Lino Haddad Attending Unavailable Lino Haddad Attending Unavailable Lino Haddad Referring Unavailable Vitor Tompkins Primary Care Unavailable Lino Haddad Attending Unavailable Lino Haddad Referring Unavailable Vitor Tompkins Primary Care Unavailable Lino Haddad Consulting Unavailable PROBLEMS PROBLEMS DATE TYPE CONDITION / CODE ATTENDING STATUS SOURCE 10/27/2018 Unknown R10.9 - Unspecified TurnerVitor Active [facility] abdominal pain / Community R10.9(ICD-10) Hospital Repository 10/27/2018 Unknown R19.7 - Diarrhea, Turner Vitor Active [place] unspecified / Community R19.7(ICD-10) Hospital Repository 10/27/2018 Unknown E11.9 - Type 2 Vitor Tompkins Active [facility] diabetes mellitus Community without Hospital complications / Repository E11.9(ICD-10) 10/27/2018 Unknown K76.0 - Fatty Vitor Tompkins Active [place] (change of) liver, Community not elsewhere Hospital classified / Repository K76.0(ICD-10) 09/05/2018 Unknown R06.02 - Shortness Lino Haddad Active [facility] of breath / Community R06.02(ICD-10) Hospital Repository 09/05/2018 Unknown R07.9 - Chest pain, Lino Haddad Active [place] unspecified / Community R07.9(ICD-10) Hospital Repository 09/05/2018 Unknown E78.5 - MoodispaLino gonsalez Active [facility] Hyperlipidemia, Community unspecified / Hospital E78.5(ICD-10) Repository 08/21/2018 Unknown I10 - Essential Lino Haddad [facility] (primary) Community hypertension / Hospital I10(ICD-10) Repository PROCEDURES PROCEDURES No Procedure Records FoundRESULTS RESULTS HEMOGLOBIN A1C Collected: 10/27/2018 Status: F Source: [place] 1:50 PM [facility] REPOSITORY Order Comment: ORDERED ESR,CRP,A1C,LIPID,CMP,CBCD ORDERED THE REST TYPE CODE TESTS RESULT OUT OF RANGE REFERENCE UNITS LAB L501.9985 4.2-6.3 % High HGB A1C 11.4 Performed By: #### L501.9985 #### [facility] [address] [facility] [place], [address] CBC W/DIFF, AUTOMATED Collected: 10/27/2018 Status: F Source: [place] 1:48 PM [facility] REPOSITORY TYPE CODE TESTS RESULT OUT OF RANGE REFERENCE UNITS LAB L100.1000 4.4-11.0 K/mm3 Normal WBC 7.4 LAB L100.1200 4.6-6.2 M/mm3 Normal RBC 5.38 LAB L100.1300 13.0-16.5 g/dl Normal HGB 15.7 LAB L100.1400 40-54 % Normal HCT 45.5 LAB L100.1500 80-94 fL Normal MCV 84.6 LAB L100.1600 27.0-32.0 pg Normal MCH 29.2 LAB L100.1700 32-36 g/gl Normal MCHC 34.5 LAB L100.1810 11.6-14.6 % Normal RDW CV 13.2 LAB L100.1820 35.1-43.9 fl Normal RDW SD 40.2 LAB L100.1900 150-450 K/mm3 Normal PLT 179 LAB L100.2000 6.2-12.0 fl Normal MPV 10.9 LAB L100.2100 47-70 % Normal NEUT% 60.3 LAB L100.2200 19-41 % Normal LY% 28.4 LAB L100.2300 0-10 % Normal MONO% 9.0 LAB L100.2400 0-5 % Normal EO% 1.5 LAB L100.2500 0-1 % Normal BASO% 0.4 LAB L100.2550 0.0-0.9 % Normal IM GRAN % 0.400 Result Comment: IG% - Immature Granulocytes (promyelocytes, myelocytes and metamyelocytes) > 1% indicates that a LEFT SHIFT is Present. LAB L100.2620 2.0-7.7 X10 3/uL Normal Absolute Neut 4.5 LAB L100.2720 0.83-4.51 X10 3/ul Normal Absolute Lymph 2.09 Performed By: #### L100.0100, L101.9900 #### [facility] [address] [place], [place], [id number] ERYTHROCYTE SED RATE Collected: 10/27/2018 Status: F Source: [place] 1:48 PM [facility] REPOSITORY TYPE CODE TESTS RESULT OUT OF RANGE REFERENCE UNITS LAB L102.0000 0-15 mm/hr High SED RATE 17 Performed By: #### L100.0100, L101.9900 #### [facility] [address] [facility]. [place], [place], [address] COMPREHENSIVE METABOLIC Collected: 10/27/2018 Status: F Source: [facility] 1:48 PM [facility] REPOSITORY TYPE CODE TESTS RESULT OUT OF RANGE REFERENCE UNITS LAB L501.0100 74-106 mg/dL High GLU 274 Result Comment: Glucose result greater than or equal to 200 mg/dL suggests DIABETES MELLITUS per A.D.A. criteria. Please note revised GLUCOSE reference range effective 2017. LAB L501.1000 7-18 mg/dL Normal BUN 10 LAB L501.1100 0.70-1.30 mg/dL Normal CREAT,SERUM 0.76 Result Comment: The validity of the calculated GFR AND GFRAA in patients over 70 years has not been determined. Clinical correlation is essential. LAB L501.1110 >60 mL/min Normal EST GFR 117 Result Comment: Non- GFR Calc LAB L501.1115 >60 mL/min Normal EST GFR - AA 142 Result Comment: GFR Calc LAB L501.1300 10-20 RATIO Normal BUN/CRE 13.2 LAB L501.1500 6.4-8.2 g/dL T Normal PROT 7.5 LAB L501.1800 3.2-5.0 g/dL Normal ALB 3.8 LAB L501.1950 2.2-4.2 g/dL Normal GLOB 3.7 LAB L501.2000 0.9-2.4 RATIO Normal A/G 1.0 LAB L501.2200 8.5-10.1 mg/dL CA Normal 8.8 LAB L501.4100 15-37 U/L Normal AST 27 LAB L501.4305 45-117 U/L Normal ALK P 98 LAB L501.4405 16-61 U/L Normal ALT 52 LAB L501.4600 0.20-1.00 mg/dL T Normal BILI 0.60 LAB L501.5300 136-145 mmol/L NA Normal 137 LAB L501.5600 3.5-5.1 mmol/L K Normal 3.8 LAB L501.5900 98-107 mmol/L CL Normal 103 LAB L501.6100 21.0-32.0 mmol/L Normal CO2 25.0 LAB L501.6200 5-15 Normal GAP 9 Performed By: #### L500.4050, L500.4100, L501.4700, L501.6710, L501.9520 #### [facility] [address] [place], [address] LIPID PROFILE Collected: 10/27/2018 Status: F Source: [place] 1:48 PM [facility] REPOSITORY TYPE CODE TESTS RESULT OUT OF RANGE REFERENCE UNITS LAB L501.4900 200 mg/dL Normal CHOL 172 Result Comment: <200 mg/dL Desirable 200-240 mg/dL Borderline >240 mg/dL High Risk LAB L501.5000 mg/dL High TRIG 331 Result Comment: The drugs N-Acetylcysteine and Metamizole may falsely depress this assay. Serum Triglycerides Reference Interval Normal <150 mg/dL Borderline high 150 - 199 mg/dL High 200 - 499 mg/dL Very High > or = 500 mg/dL LAB L501.6400 mg/dL Low HDL 32 Result Comment: The drugs N-Acetylcysteine and Metamizole may falsely depress this assay. Reference Range HDL <40 mg/dL Low HDL Cholesterol HDL >or= 60 mg/dL High HDL Cholesterol LAB L501.6500 0-130 mg/dL Normal LDL 74 LAB L501.6600 5-40 mg/dL High VLDL 66 Performed By: #### L500.4050, L500.4100, L501.4700, L501.6710, L501.9520 #### [facility] [address] [facility] [place], [place], [id number] BILIRUBIN, DIRECT Collected: 10/27/2018 Status: F Source: [place] 1:48 PM [facility] REPOSITORY TYPE CODE TESTS RESULT OUT OF RANGE REFERENCE UNITS LAB L501.4700 0.00-0.30 mg/dL Normal D BILI 0.13 Performed By: #### L500.4050, L500.4100, L501.4700, L501.6710, L501.9520 #### [facility] [address] [facility]. [place], [place], [address] CRP Collected: 10/27/2018 Status: F Source: [place] 1:48 PM [facility] REPOSITORY TYPE CODE TESTS RESULT OUT OF RANGE REFERENCE UNITS LAB L501.6710 0.0-3.0 mg/L High 16.10 C-REACTIVE PROT Result Comment: C-Reactive Protein (CRP) provides useful information for the diagnosis, therapy and monitoring of inflammatory processes and associated diseases. For the evaluation of Relative Risk for Cardiovascular Disease, a High Sensitivity CRP (HSCRP) should be ordered. Performed By: #### L500.4050, L500.4100, L501.4700, L501.6710, L501.9520 #### [facility] [address] [facility] [place], [address] THYROID STIM HORMONE Collected: 10/27/2018 Status: F Source: [place] (TSH) 1:48 PM [facility] REPOSITORY TYPE CODE TESTS RESULT OUT OF RANGE REFERENCE UNITS LAB L501.9520 0.358-3.74 uIU/mL Normal TSH 2.12 Performed By: #### L500.4050, L500.4100, L501.4700, L501.6710, L501.9520 #### [facility] [address] [place], [address] ECHOCARDIOGRAM COMPLETE Observed: 09/05/2018 Status: F Source: [place] 6:13 PM [facility] REPOSITORY [facility] Cardiovascular Services [address] [facility] [place] [address] Echo Complete 09/05/18 0959 MR#: [id number] Acct: [id number] Name: SHANTANU REINOSO III Rep #: [id number] : 1970 48 From: Lino Haddad MD Attending Dr: Lino Haddad MD Status: REG CLI Ordering Dr: Lino Haddad MD Date: 09/05/18 Location: [facility] Sex: M C Admitted: Reason For Study: [...] Physician: Vitor Tompkins Performed By: Lorelei Johnson, RDCS, RVT 09/05/181811 Date Lino Haddad MD CC: Vitor Tompkins DO; Lino Haddad MD Date Dictated: 09/05/1859 Date Transcribed: 09/05/181811 Tube Wrapper: Signed STRESS REPORT Observed: 09/05/2018 Status: F Source: [place] 2:48 PM [facility] REPOSITORY [facility] Cardiovascular Services [address] [place] [address] MR#: [id number] Acct: [id number] Name: SHANTANU REINOSO III Rep #: [id number] : 1970 48 From: Lino Haddad MD Primary Care: Vitor Tompkins DO Status: REG CLI Ordering Dr: Lilly: Jaden Fishman Stress Test Report Date: 09/05/2018 Procedure: Exercise [...] 63 %. This note was generated with [employer] Up[employer] software. It may contain incorrect words, spelling, and punctuation that were not noted in checking the note before signing. 09/05/181447 <Electronically signed by Lino Haddad MD> Date Lino Haddad MD CC: Vitor Tompkins DO; Lino Haddad MD Date Dictated: 09/05/181443 Date Transcribed: 09/05/181443 Tube Wrapper: PM Signed CHEST PA AND LATERAL Observed: 09/05/2018 Status: F Source: [place] 6:46 AM [facility] REPOSITORY [facility] Imaging Services [address] [place] [address] Chest PA and Lateral MR#: [id number] Acct: [id number] Name: SHANTANU REINOSO III Rep #: [id number] : 1970 M 48 From: Kt Gonzales MD PCP: Vitor Tompkins DO Status: REG CLI Study: Chest PA and Lateral Date of Exam: 09/05/18 Exam# [id number] Ordering Dr: Lino Haddad MD STUDY: X-RAY [...] CC: Vitor Tompkins DO; Lino Haddad MD Tube Wrapper: Signed CARDIOLOGY VISIT Observed: 08/21/2018 Status: F Source: [place] REPORT 6:06 PM [facility] REPOSITORY [facility] [address] [place] [address]. [address] [place] [address] OFFICE VISIT Date of Service: 08/21/18 MR#: [id number] Acct: [id number] Name: SHANTANU REINOSO III Rep #: [id number] : 1970 Provider: Lino Haddad MD Age/Sex: 48/M Location: [facility] Status: Signed HPI HPI Details: SHANTANU REINOSO, [...] mg PO DAILY@0800 01/22/14 [History Confirmed 08/21/18] cgnxzjlaxny-wixdntoex-J-Mn-boron 750 mg-600 mg-30 mg-1mg-1.5mg tablet 1 tab [...] mg PO DAILY 08/21/18 [History Confirmed 08/21/18] [facility] Medical History Hyperlipemia (Chronic) SOB (shortness of [...] Observed: 08/21/2018 Status: F Source: [place] BY [facility] 1:02 PM [facility] REPOSITORY [facility] [address] [place] [address] 12 Lead EKG performed by T[facility] 08/21/18 1301 MR#: [id number] Acct: [id number] Name: SHANTANU REINOSO III Rep #: [id number] : 1970 48 From: Lino Haddad MD Attending Dr: Lino Haddad MD Status: DEP AMB Ordering Dr: Lino Haddad MD Date: 08/21/18 Location: [facility] Sex: M C Admitted: BMS/12 Lead EKG performed by [facility] ECG Report Interpretation Sinus Rhythm Poor R wave progressionElectronically signed on 08/22/2018 at 13:12 by Lino Haddad [facility] [employer] Version 8610 08/22/18 1314 Date Lino Haddad MD CC: Date Dictated: 08/21/18 1301 Date Transcribed: 08/21/18 130 Tube Wrapper: PM Signed ALLERGIES ALLERGIES DATE TYPE / CODE NAME / CODE REACTION SEVERITY SOURCE 08/21/2018 Drug No Known Unknown [facility] Allergy/4160 Allergies/F00 Hospital 52475(SNOMED 4805068(RXNOR Repository CT) M) ENCOUNTERS ENCOUNTERS ADMIT/DISCHARGE ACCOUNT ADMITTING ENCOUNTER LOCATION SOURCE NUMBER CLASS 10/27/2018 [id number] [facility] ing:[facility] Repository 09/05/2018 [id number] Ambulatory BMSBuilding:B [facility] 2 MS.CF.[facility] Repository 09/05/2018 [id number] [facility] ing:[facility] Repository 08/21/2018/ [id number] Ambulatory BMSBuilding:B [place] 8 9 MS.[facility] Repository 07/08/2018 [id number] Ambulatory BMSBuilding:B [facility] 7 MS.[facility] Repository PAYERS PAYERS ENCOUNTER GUARANTOR PAYER SUBSCRIBER SOURCE 10/27/2018 SHANTANU Aldrich Primary UDAY Y [place] REINOSO [id number] Insurance[facility]MPolic [facility] y [place]: [id number] [id number] Repository 29460Xsr: ([phone]) Date:1737-48-62[phone] () [id number] ALLEN [address]FJ: 10/27/2018 Secondary NOT GIVENUNK [facility] Insurance:SELF PAY [facility] Number: Effective Repository Date:2018-10-27 09/05/2018 SHANTANU J Primary UDAY Y [facility] KEMAR [id number] Insurance:ANTHEMPolic LEMASTERDOB: [facility] y Number: [id number], [place] [id number] Repository [address]Ekn: ([phone]) Date:5077-74-68LG [phone] () TRISHA SMALLS [address]29[address]CQ: 09/05/2018 Secondary NOT GIVENUNK [facility] Insurance:SELF PAY [facility] Number: Effective Repository Date:2018-09-05 09/05/2018 SHANTANU J Primary UDAY Y [place] KEMAR [id number] Insurance:ANTHEMPolic LEMASTERDOB: [facility] y Number: [id number], [place] [id number] Repository [address]Bjd: ([phone]) Date:8335-89-15ME [phone] () [id number] ALLEN [address]77[address]FP: 09/05/2018 Secondary NOT GIVENUNK [facility] Insurance:SELF PAY [facility] Number: Effective Repository Date:2018-08-21 08/21/2018 SHANTANU J Primary SHANTANU J [facility] KEMAR [id number] Insurance:ANTHEMPolic KEMAR IIIDOB: [facility] y Number: [id number], [place] [id number] Repository [address]Lwo: [phone]) Date:8207-49-23QW [phone] () [id number] ALLEN [address]75[address]ZA: 08/21/2018 Secondary NOT GIVENUNK [place] Insurance:SELF PAY [facility] Number: Effective Repository Date:2018-08-21 07/08/2018 Shantanu J Primary UDAY Y [facility] Kemar [id number] Insurance:MEDICAL LEMASTERDOB: [facility] [id number] Number: Repository [id number]: [phone] [id number] [phone] () Date:6103-99-34YY [address], [place] [address]BY: 07/08/2018 Secondary NOT GIVENNABEEL Pa[place] Insurance:SELF PAY [facility] Number: Effective Repository Date:2018-07-08
== END ==
PROVIDERS: Internal Medicine Cardiovascular Disease; Family Provider Family Medicine; PCP Family Medicine; Visit Provider Family Medicine
DX: R10.9 Unspecified abdominal pain (principal); R19.7 Diarrhea, unspecified; E11.9 Type 2 diabetes mellitus without complications; K76.0 Fatty (change of) liver, not elsewhere classified; R06.02 Shortness of breath; R07.9 Chest pain, unspecified; E78.5 Hyperlipidemia, unspecified
CPT/HCPCS: 80053; 80061; 82248; 83036; 84443; 85025; 85652; 86140

== ENCOUNTER → 2018-12-22 14:29 | Outpatient (CLI) | payer BC, SELFPAY ==
[2018-08-21 13:06] VITALS: BMI 34.0
--- NOTE | 2018-12-22 09:30 | COLBX_PTH ---
PATIENT: MARISELA REINOSO III LOC: [facility] U#:[id number] AGE/SX: 55/M ROOM: RE12/22/[address]: Dr. Dev Kumar MD : 1970 BED: DIS: SPEC #: [id number] RECD: 12/22/18 14:23 STATUS: ZENY CHARITY #: [id number] JABIER: 12/22/18 09:[address]: Dev Kumar DEPT: SURGICAL PATHOLOGY RECD BY: Kalpana Parikh ENTERED: 12/22/18 14:48 SP TYPE: COLON BX OTHR DR: Dr. Vitor Tompkins, [facility] Tissues: A - Ileum, NOS B - COLON BIOPSY Procedures: Surgery Specimen Level IV HEADER OPERATION: Colonoscopy with biopsies PRE-OP DIAGNOSIS: Diarrhea, IBS TISSUE SUBMITTED: A - Terminal ileum biopsies, rule out Crohn's, B - Right and left colon, rule out microscopic colitis MICROSCOPIC DIAGNOSIS A. Terminal ileum, biopsy: No pathologic diagnosis. No evidence of Crohn's enteritis. See comment. B. Right and left colon, biopsy: No pathologic diagnosis. AM:boaz 12/23/18 COMMENT A. There is no evidence of Crohn's enteritis. Clinical correlation is suggested. MICROSCOPIC DESCRIPTION Slides are reviewed. GROSS DESCRIPTION A - Received in fixative is one container labeled with the patient's name and designated terminal ileum biopsy. The specimen consists of multiple irregular fragments of light snyder soft tissue that in aggregate measure 1.5 x 0.3 x 0.1 cm. The specimen is totally submitted in one cassette. B - Received in fixative is one container labeled with the patient's name and designated right and left colon biopsy. The specimen consists of multiple irregular fragments of light snyder soft tissue that in aggregate measure 2 x 0.5 x 0.1 cm. The specimen is totally submitted in one cassette. / SJ:boaz 12/22/18 TC:5 CPT: 12459 x2
== END ==
PROVIDERS: Family Provider Family Medicine; PCP Family Medicine; Referring Provider Internal Medicine Gastroenterology; Visit Provider Internal Medicine Gastroenterology
DX: K58.0 Irritable bowel syndrome with diarrhea (principal)
CPT/HCPCS: 88305

== ENCOUNTER → 2019-01-19 16:18 | Outpatient (CLI) | payer BC, SELFPAY ==
[2018-08-21 13:06] VITALS: BMI 34.0
[2019-01-19 17:48] LABS: AST(SGOT) 23 U/L (15-37); Alanine Aminotransfer ALT/SGPT 40 U/L (16-61); Alkaline Phosphatase 74 U/L (45-117); Bilirubin, Direct 0.13 mg/dL (0.00-0.30); Globulin 3.8 g/dL (2.2-4.2); Protein, Total 7.8 g/dL (6.4-8.2)
[2019-01-21 17:54] LABS: Endomysial Antibody IgA Negative (Negative)
[2019-01-22 17:06] LABS: Immunoglobulin A 232 mg/dL (90-386); t-Transglutaminase IgA <2 U/mL (0-3)
== END ==
PROVIDERS: Family Provider Family Medicine; PCP Family Medicine; Referring Provider Internal Medicine Gastroenterology; Visit Provider Internal Medicine Gastroenterology
DX: R10.9 Unspecified abdominal pain (principal)
CPT/HCPCS: 36415; 80076; 82784; 83516; 86140; 86255

== ENCOUNTER → 2019-02-13 10:04 | Outpatient (CLI) | payer BC, SELFPAY ==
[2018-08-21 13:06] VITALS: BMI 34.0
--- NOTE | 2019-02-13 10:11 | US_ITS ---
STUDY: ABDOMINAL ULTRASOUND - RIGHT UPPER QUADRANT REASON FOR VISIT: Male, 48 years old. Fatty liver, chronic right upper quadrant pain, intermittent nausea, cholecystectomy 2007 TECHNIQUE: Ultrasound evaluation of the right upper quadrant was performed with real-time and static greene-scale imaging. TECHNICAL QUALITY: Adequate. COMPARISON: None. FINDINGS: Liver: The liver measures 17.9 cm. The liver is mildly echogenic without significantly diminished posterior acoustic transmission, suggesting mild hepatic steatosis. The bile ducts are within normal limits. There is hepatic color flow. The direction of portal flow is hepatopetal. There is no demonstrated mass lesion. Gallbladder: Surgically absent. There is a hepatoduodenal lymph node gallbladder fossa measuring approximately 2.58 x 1.03 cm. Similar features seen on prior imaging of 2014. Common Bile Duct (C.B.D.): The common bile duct measures 4.1 mm. Pancreas: Normal size of the head, body and tail of the pancreas. There is normal echogenicity of the pancreas. There is no demonstrated pancreatic mass or cyst. Right Kidney: Normal size of the right kidney. The right kidney measures 12.2 cm. Normal renal cortex. The right cortex measures 1.7 cm. There is no demonstrated renal mass or cyst. There is no right hydronephrosis. US/Liver IMPRESSION: There is evidence of mild hepatic steatosis without significant hepatomegaly. There is a mildly enlarged lymph node along the hepatoduodenal ligament that appears to be stable compared to prior imaging of 2014. Periportal nodes were also reported on the prior CT scan of 2013. Nondilated biliary tree. No acute process is evident. Electronically Signed: Shantanu Dumont MD at 17:50 EDT Tel , Service support ,
== END ==
PROVIDERS: Family Provider Family Medicine; PCP Family Medicine; Referring Provider Internal Medicine Gastroenterology; Visit Provider Internal Medicine Gastroenterology
DX: K76.0 Fatty (change of) liver, not elsewhere classified (principal)
CPT/HCPCS: 76705

== ENCOUNTER → 2020-05-31 14:54 | Outpatient (CLI) | payer OTHER, SELFPAY ==
[2018-08-21 13:06] VITALS: BMI 34.0
[2020-05-31 17:27] LABS: Hemoglobin A1c 10.8 % (3.8-5.6)
[2020-05-31 17:30] LABS: Cholesterol 195 mg/dL (200); High Density Lipoprotein 33 mg/dL; Thyroid Stim Hormone (TSH) 2.58 uIU/mL (0.358-3.74); Triglycerides 339 mg/dL; Very Low Density Lipoprotein 68 mg/dL (5-40)
[2020-05-31 17:41] LABS: Absolute Lymphocyte Count 2.48 X10^3/uL (0.83-4.51); Absolute Neutrophil Count 5.3 X10^3/uL (2.0-7.7); Basophil# 0.04 X10^3/uL; Basophil% 0.5 % (0-1); Eosinophil# 0.15 X10^3/uL; Eosinophils% 1.7 % (0-5); Hemoglobin 15.6 g/dL (13.0-16.5); Lymphocyte # 2.48 X10^3/ul (4.0); Lymphocyte % 28.6 % (19-41); Mean Corp Hgb Conc 34.7 g/dL (32-36); Mean Corpuscular Hgb 29.2 pg (27.0-32.0); Mean Corpuscular Volume 84.3 fL (80-94); Mean Platelet Vol. 10.9 fl (6.2-12.0); Monocyte# 0.72 X10^3/uL; Monocyte% 8.3 % (0-10); NRBC Flagged by Analyzer 0 % (0-5); Neutrophil # 5.25 X10^3/uL (2.7-7.7); Neutrophil % 60.4 % (47-70); Platelet Count 219 K/mm3 (150-450); RBC Distribution Width CV 12.6 % (11.6-14.6); RBC Distribution Width SD 38.4 fl (35.1-43.9); Red Blood Count 5.34 M/mm3 (4.6-6.2); White Blood Count 8.7 K/mm3 (4.4-11.0)
[2020-05-31 17:44] LABS: Microalbumin,Random Urine 35.5 mg/L (NO RANGE EST.); Microalbumin:Creatinine Ratio 12.6 mg/g CRE (<30 mg/g CRE)
== END ==
PROVIDERS: PCP Family Medicine; Visit Provider Family Medicine
DX: Z00.00 Encounter for general adult medical examination without abnormal findings (principal); E11.9 Type 2 diabetes mellitus without complications; K76.0 Fatty (change of) liver, not elsewhere classified
CPT/HCPCS: 36415; 80061; 82043; 82570; 83036; 84443; 85025